=== PATIENT | male | born 1955 | race African-American/Black ===

== ENCOUNTER 2019-08-14 12:17 | Inpatient (IN) | payer MEDICAID, MEDICARE ==
[~2019-08-14] VITALS: Ht 167.6 cm; Wt 136.5 kg
[~2019-08-14 12:17] MED LIST: ALPR0.25 PO; AMLO10TA4 PO; ATOR80TA PO; CLON0.3T PO; FURO-152 PO; GABA-290 PO; HYDR-3927 PO; INSLAN SQ; METF-416 PO; METO25TA6 PO; ZOLP10TA2 PO
[2019-08-14] MEDS ORDERED: FUROSEMIDE 40MG/4ML VIAL IV ONE (13:30)
[2019-08-14] MEDS ORDERED: NITROGLYCERIN OINT 1GM/INCH UDPKT TD ONE (13:30)
[2019-08-14] MEDS ORDERED: ASPIRIN 81MG TABLET PO ONE (13:30)
[2019-08-14 14:37] LABS: BASOPHILS % 0.6 % (0.0-2.0); HEMATOCRIT. 37.2 % (42.0-52.0); LYMPHOCYTES % 26.4 % (20.0-50.0); MEAN CORPUSCULAR HEMOGLOBIN 29.6 pg (28.0-32.0); MEAN PLATELET VOLUME 9.8 fl (7.4-10.4); MONOCYTES % 11.2 % (2.0-8.0); NEUTROPHILS % 57.8 % (40.0-76.0); PLATELET 208 x1000/uL (130-400); RED BLOOD CELL COUNT 4.38 mill/uL (4.7-6.1)
[2019-08-14 14:43] LABS: CHLORIDE 109 mEq/L (98-107)
[2019-08-14 15:04] LABS: PROTHROMBIN TIME 11.3 sec (9.6-11.0)
[2019-08-14] MEDS ORDERED: INSULIN REGULAR (HUMULIN R) 300UNITS/3ML IV ONE (15:15)
[2019-08-14] MEDS ORDERED: DEXTROSE 50% WATER 50ML SYRINGE IV ONE (15:15)
[2019-08-14] MEDS ORDERED: SODIUM BICARBONATE 8.4% 1 MEQ/ML 50ML SYR IV ONE (15:15)
[2019-08-14] MEDS ORDERED: ALBUTEROL (0.083%) 2.5MG/3ML NEB HHN ONE (15:15)
[2019-08-14] MEDS ORDERED: SODIUM POLYSTYRENE SULFONATE 15 G/60 ML BOT PO ONE (15:15)
[2019-08-14] MEDS ORDERED: ONDANSETRON HCL 4MG/2ML INJ IV STA (16:21)
[2019-08-14] MEDS ORDERED: MORPHINE SULFATE 4 MG/ML CPJ (NOT FOR IM USE) IV STA (16:21)
[2019-08-14 17:43] VITALS: BP 113/71
[2019-08-14] MEDS ORDERED: ONDANSETRON HCL 4MG/2ML INJ IV PRN (18:00)
[2019-08-14] MEDS ORDERED: ACETAMINOPHEN 325MG TABLET PO PRN (18:00)
[2019-08-14] MEDS ORDERED: IPRATROPIUM/ALBUTEROL 0.5-3(2.5)MG/3ML NEB HHN PRN (18:00)
[2019-08-14 18:45] VITALS: BP 113/71
[2019-08-14 20:00] VITALS: BP 161/99
[2019-08-14] MEDS ORDERED: DEXTROSE 50% WATER 50ML SYRINGE IV PRN (21:00)
[2019-08-14] MEDS: BLOOD SUGAR DIAGNOSTIC STRIP TEST SCH (21:16)
[2019-08-14] MEDS: MORPHINE SULFATE 2 MG/ML CPJ (NOT FOR IM USE) IV PRN (21:42)
[2019-08-14] MEDS: GABAPENTIN 300MG CAPSULE PO SCH (21:43)
[2019-08-14] MEDS: INSULIN LISPRO 100 UNITS/ML SUBCUT SCH (21:43)
[2019-08-14] MEDS: ATORVASTATIN CALCIUM 40MG TABLET PO SCH (21:44)
[2019-08-14] MEDS: CLONIDINE 0.1MG TABLET PO PRN (21:44)
[2019-08-14] MEDS: ZOLPIDEM TARTRATE 5MG TABLET PO PRN (22:53)
[2019-08-14] MEDS: ALPRAZOLAM 0.25 MG TABLET PO PRN (23:43)
[2019-08-15] VITALS (7 sets, daily range): BP systolic 103–187; BP diastolic 54–81
[2019-08-15] MEDS: GABAPENTIN 300MG CAPSULE PO SCH ×3 (05:51→21:22)
[2019-08-15] MEDS: BLOOD SUGAR DIAGNOSTIC STRIP TEST SCH ×4 (05:51→20:39)
[2019-08-15] MEDS: MORPHINE SULFATE 2 MG/ML CPJ (NOT FOR IM USE) IV PRN ×3 (06:39→20:17)
[2019-08-15] MEDS: INSULIN LISPRO 100 UNITS/ML SUBCUT SCH ×4 (08:18→20:41)
[2019-08-15] MEDS: AMLODIPINE 10MG TABLET PO SCH (08:24)
[2019-08-15] MEDS: FUROSEMIDE 20MG TABLET PO SCH ×2 (08:24→16:29)
[2019-08-15] MEDS: CLONIDINE 0.3MG TABLET PO SCH (08:24)
[2019-08-15] MEDS ORDERED: METOPROLOL TARTRATE 25MG TABLET PO SCH (09:00)
[2019-08-15] MEDS: ALPRAZOLAM 0.25 MG TABLET PO PRN ×3 (09:58→22:20)
[2019-08-15] MEDS: INSULIN GLARGINE UD 100 UNITS/ML SYR SUBCUT SCH (10:00)
[2019-08-15] MEDS ORDERED: SODIUM POLYSTYRENE SULFONATE 15 G/60 ML BOT PO NR (13:00)
[2019-08-15 14:30] LABS: *BARBITURATES SCREEN URINE NEGATIVE (NEGATIVE)
[2019-08-15 14:31] LABS: *AMPHETAMINES SCREEN URINE NEGATIVE (NEGATIVE); *BENZODIAZEPINES SCREEN URINE NEGATIVE (NEGATIVE); *COCAINE SCREEN URINE PRESUMTIVE POSITIVE (NEGATIVE); CANNABINOID URINE SCREEN NEGATIVE (NEGATIVE); METHADONE URINE SCREEN NEGATIVE (NEGATIVE); OPIATES URINE SCREEN PRESUMTIVE POSITIVE (NEGATIVE); PHENCYCLIDINE URINE SCREEN NEGATIVE (NEGATIVE)
[2019-08-15] MEDS: NICOTINE 14MG PATCH TD SCH (16:29)
[2019-08-15] MEDS: ATORVASTATIN CALCIUM 40MG TABLET PO SCH (21:23)
[2019-08-15] MEDS: ZOLPIDEM TARTRATE 5MG TABLET PO PRN (22:21)
[2019-08-16] VITALS: BP 106/38
[2019-08-16] MEDS: MORPHINE SULFATE 2 MG/ML CPJ (NOT FOR IM USE) IV PRN ×4 (02:18→22:21)
[2019-08-16 04:00] VITALS: BP 108/72
[2019-08-16] MEDS: GABAPENTIN 300MG CAPSULE PO SCH ×3 (06:19→21:25)
[2019-08-16 08:00] VITALS: BP 165/95
[2019-08-16] MEDS: NICOTINE 14MG PATCH TD SCH (09:11)
[2019-08-16] MEDS: AMLODIPINE 10MG TABLET PO SCH (09:12)
[2019-08-16] MEDS: FUROSEMIDE 20MG TABLET PO SCH ×2 (09:12→16:12)
[2019-08-16] MEDS: INSULIN LISPRO 100 UNITS/ML SUBCUT SCH ×4 (09:18→21:34)
[2019-08-16] MEDS: CLONIDINE 0.1MG TABLET PO PRN ×2 (09:18→09:20)
[2019-08-16] MEDS: CLONIDINE 0.3MG TABLET PO SCH (09:26)
[2019-08-16] MEDS: INSULIN GLARGINE UD 100 UNITS/ML SYR SUBCUT SCH (10:31)
[2019-08-16 12:00] VITALS: BP 114/61
[2019-08-16] MEDS: BLOOD SUGAR DIAGNOSTIC STRIP TEST SCH ×3 (12:39→21:31)
[2019-08-16 13:43] LABS: BASOPHILS % 0.6 % (0.0-2.0); EOSINOPHILS % 4.5 % (0.0-5.0); HEMATOCRIT. 37.6 % (42.0-52.0); HEMOGLOBIN. 13.1 g/dL (14.0-18.0); LYMPHOCYTES % 27.1 % (20.0-50.0); MEAN CORPUSCULAR HEMOGLOBIN 29.4 pg (28.0-32.0); MEAN CORPUSCULAR VOLUME 84.3 fL (80.0-94.0); MEAN PLATELET VOLUME 9.5 fl (7.4-10.4); MONOCYTES % 11.5 % (2.0-8.0); NEUTROPHILS % 56.3 % (40.0-76.0); PLATELET 185 x1000/uL (130-400); RED BLOOD CELL COUNT 4.46 mill/uL (4.7-6.1); RED CELL DISTRIBUTION WIDTH 15.1 % (11.6-14.6)
[2019-08-16 13:53] LABS: CHLORIDE 105 mEq/L (98-107)
[2019-08-16 16:00] VITALS: BP 119/65
[2019-08-16] MEDS: ALPRAZOLAM 0.25 MG TABLET PO PRN ×2 (16:12→21:25)
[2019-08-16 16:51] LABS: PHOSPHORUS 3.8 mg/dL (2.5-4.9)
[2019-08-16 16:53] LABS: CREATINE KINASE 172 IU/L (39-308)
[2019-08-16 17:12] LABS: CHLORIDE 105 mEq/L (98-107)
[2019-08-16 17:29] LABS: LDL CHOLESTEROL 60 mg/dL (5-100)
[2019-08-16 17:31] LABS: HDL CHOLESTEROL 56 mg/dL (40-59)
[2019-08-16 20:00] VITALS: BP 132/62
[2019-08-16] MEDS: ATORVASTATIN CALCIUM 40MG TABLET PO SCH (21:25)
[2019-08-16] MEDS: ZOLPIDEM TARTRATE 5MG TABLET PO PRN (22:56)
[2019-08-17] VITALS (7 sets, daily range): BP systolic 118–180; BP diastolic 70–95
[2019-08-17] MEDS: BLOOD SUGAR DIAGNOSTIC STRIP TEST SCH ×4 (06:20→21:00)
[2019-08-17] MEDS: GABAPENTIN 300MG CAPSULE PO SCH ×3 (06:20→21:41)
[2019-08-17] MEDS: NICOTINE 14MG PATCH TD SCH (09:29)
[2019-08-17] MEDS: INSULIN LISPRO 100 UNITS/ML SUBCUT SCH ×4 (09:30→22:54)
[2019-08-17] MEDS: FUROSEMIDE 20MG TABLET PO SCH ×2 (09:30→17:00)
[2019-08-17] MEDS: AMLODIPINE 10MG TABLET PO SCH (09:30)
[2019-08-17] MEDS: MORPHINE SULFATE 2 MG/ML CPJ (NOT FOR IM USE) IV PRN ×2 (09:38→18:11)
[2019-08-17] MEDS: INSULIN GLARGINE UD 100 UNITS/ML SYR SUBCUT SCH (10:00)
[2019-08-17] MEDS: CLONIDINE 0.1MG TABLET PO PRN (19:42)
[2019-08-17] MEDS: ALPRAZOLAM 0.25 MG TABLET PO PRN (21:40)
[2019-08-17] MEDS: ATORVASTATIN CALCIUM 40MG TABLET PO SCH (21:41)
[2019-08-17] MEDS: ZOLPIDEM TARTRATE 5MG TABLET PO PRN (23:10)
[2019-08-18] VITALS: BP 143/67
[2019-08-18 04:00] VITALS: BP 168/90
[2019-08-18] MEDS: MORPHINE SULFATE 2 MG/ML CPJ (NOT FOR IM USE) IV PRN ×3 (04:08→22:03)
[2019-08-18] MEDS: HYDROCODONE/ACETAMINOPHEN 5/325MG TABLET PO PRN (06:44)
[2019-08-18] MEDS: BLOOD SUGAR DIAGNOSTIC STRIP TEST SCH ×4 (06:45→21:01)
[2019-08-18] MEDS: GABAPENTIN 300MG CAPSULE PO SCH ×3 (06:45→20:57)
[2019-08-18] MEDS: INSULIN LISPRO 100 UNITS/ML SUBCUT SCH ×4 (08:24→21:15)
[2019-08-18] MEDS: NICOTINE 14MG PATCH TD SCH (09:53)
[2019-08-18] MEDS: FUROSEMIDE 20MG TABLET PO SCH (09:53)
[2019-08-18] MEDS: ALPRAZOLAM 0.25 MG TABLET PO PRN ×2 (09:53→21:08)
[2019-08-18] MEDS: AMLODIPINE 10MG TABLET PO SCH (09:54)
[2019-08-18] MEDS: INSULIN GLARGINE UD 100 UNITS/ML SYR SUBCUT SCH (10:44)
[2019-08-18] MEDS: CLONIDINE 0.1MG TABLET PO SCH ×2 (11:54→20:58)
[2019-08-18 12:00] VITALS: BP 177/98
[2019-08-18 16:00] VITALS: BP 141/69
[2019-08-18 20:00] VITALS: BP 154/76
[2019-08-18] MEDS: ATORVASTATIN CALCIUM 40MG TABLET PO SCH (20:58)
[2019-08-18] MEDS: ZOLPIDEM TARTRATE 5MG TABLET PO PRN (23:14)
[2019-08-19] VITALS: BP 139/70
[2019-08-19] MEDS: HYDROCODONE/ACETAMINOPHEN 5/325MG TABLET PO PRN ×2 (02:46→06:50)
[2019-08-19 04:00] VITALS: BP 145/83
[2019-08-19] MEDS: MORPHINE SULFATE 2 MG/ML CPJ (NOT FOR IM USE) IV PRN (04:53)
[2019-08-19] MEDS: GABAPENTIN 300MG CAPSULE PO SCH (06:23)
[2019-08-19] MEDS: BLOOD SUGAR DIAGNOSTIC STRIP TEST SCH (06:25)
[2019-08-19 08:00] VITALS: BP 146/75
[2019-08-19 08:03] LABS: CHLORIDE 107 mEq/L (98-107)
[2019-08-19] MEDS: CLONIDINE 0.1MG TABLET PO SCH (08:33)
[2019-08-19] MEDS: INSULIN LISPRO 100 UNITS/ML SUBCUT SCH (08:36)
[2019-08-19] MEDS: AMLODIPINE 10MG TABLET PO SCH (08:42)
[2019-08-19] MEDS: NICOTINE 14MG PATCH TD SCH (08:43)
[2019-08-19] MEDS: INSULIN GLARGINE UD 100 UNITS/ML SYR SUBCUT SCH (10:53)
== END 2019-08-19 11:37 | disposition home or self-care (01) | DRG 203 ==
LOC: ER 12:31 → 6WST 15:36 → ENRESERV 16:32 → 6WST 20:11 → 6EST 08-18 11:36
PROVIDERS: ADMIT Internal Medicine; ATTEND Internal Medicine
DX: M94.0 Chondrocostal junction syndrome [Tietze] (principal); N17.9 Acute kidney failure, unspecified; E44.0 Moderate protein-calorie malnutrition; E11.22 Type 2 diabetes mellitus with diabetic chronic kidney disease; I13.0 Hypertensive heart and chronic kidney disease with heart failure and stage 1 through stage 4 chronic kidney disease, or unspecified chronic kidney disease; I50.32 Chronic diastolic (congestive) heart failure; I25.10 Atherosclerotic heart disease of native coronary artery without angina pectoris; E66.01 Morbid (severe) obesity due to excess calories; E87.5 Hyperkalemia; F14.10 Cocaine abuse, uncomplicated; F17.200 Nicotine dependence, unspecified, uncomplicated; N18.9 Chronic kidney disease, unspecified; J44.9 Chronic obstructive pulmonary disease, unspecified; E78.5 Hyperlipidemia, unspecified; F12.10 Cannabis abuse, uncomplicated; F10.10 Alcohol abuse, uncomplicated; Y90.9 Presence of alcohol in blood, level not specified; D64.9 Anemia, unspecified; I69.354 Hemiplegia and hemiparesis following cerebral infarction affecting left non-dominant side; Z91.19 Patient's noncompliance with other medical treatment and regimen; Z68.42 Body mass index [BMI] 45.0-49.9, adult; Z88.8 Allergy status to other drugs, medicaments and biological substances; Z79.84 Long term (current) use of oral hypoglycemic drugs; Z79.891 Long term (current) use of opiate analgesic; Z79.4 Long term (current) use of insulin; Z82.49 Family history of ischemic heart disease and other diseases of the circulatory system; Z59.0 Homelessness; Z83.3 Family history of diabetes mellitus
CPT/HCPCS: 36415; 71045; 80048; 80053; 80061; 80305; 82550; 82962; 83036; 83735; 83880; 84100; 84443; 84484; 85025; 85379; 93005; 93306; 93970; 99285; J1815; J1940; J2270; J2405; J3490

== ENCOUNTER 2020-07-21 22:29 | Inpatient (IN) | payer MEDICAID ==
[~2020-07-21] VITALS: Ht 177.8 cm; Wt 138.9 kg
[~2020-07-21 22:29] MED LIST changes: -CLON0.3T PO; -METO25TA6 PO
[2020-07-22] MEDS ORDERED: FAMOTIDINE 20MG/2ML VIAL IV STA (00:20)
[2020-07-22] MEDS ORDERED: METOCLOPRAMIDE HCL 10MG/2ML VIAL IV STA (00:20)
[2020-07-22 00:58] LABS: *AMPHETAMINES SCREEN URINE NEGATIVE (NEGATIVE); *BARBITURATES SCREEN URINE NEGATIVE (NEGATIVE); *BENZODIAZEPINES SCREEN URINE NEGATIVE (NEGATIVE); *COCAINE SCREEN URINE NEGATIVE (NEGATIVE); CANNABINOID URINE SCREEN NEGATIVE (NEGATIVE); METHADONE URINE SCREEN NEGATIVE (NEGATIVE); OPIATES URINE SCREEN PRESUMTIVE POSITIVE (NEGATIVE); PHENCYCLIDINE URINE SCREEN NEGATIVE (NEGATIVE)
[2020-07-22 02:18] LABS: BASOPHILS % 0.8 % (0.0-2.0); EOSINOPHILS % 4.6 % (0.0-5.0); HEMATOCRIT. 42.6 % (42.0-52.0); HEMOGLOBIN. 14.4 g/dL (14.0-18.0); LYMPHOCYTES % 18.1 % (20.0-50.0); MEAN CORPUSCULAR HEMOGLOBIN 28.5 pg (28.0-32.0); MEAN PLATELET VOLUME 9.4 fl (7.4-10.4); NEUTROPHILS % 67.5 % (40.0-76.0); PLATELET 222 x1000/uL (130-400); RED BLOOD CELL COUNT 5.07 mill/uL (4.7-6.1); RED CELL DISTRIBUTION WIDTH 15.9 % (11.6-14.6)
[2020-07-22 02:21] LABS: CHLORIDE 105 mEq/L (98-107)
[2020-07-22] MEDS ORDERED: MORPHINE SULFATE 2 MG/ML CPJ (NOT FOR IM USE) IV PRN (05:00)
[2020-07-22 09:30] VITALS: BP 139/78
[2020-07-22] MEDS ORDERED: ONDANSETRON HCL 4MG/2ML INJ IV PRN ×2 (09:30)
[2020-07-22] MEDS ORDERED: ACETAMINOPHEN 325MG TABLET PO PRN (09:30)
[2020-07-22 10:30] VITALS: BP 139/78
[2020-07-22] MEDS ORDERED: LOSARTAN POTASSIUM 50 MG TABLET PO SCH (11:00)
[2020-07-22 12:00] VITALS: BP 160/98
[2020-07-22] MEDS: TRAMADOL 50MG TABLET PO PRN ×2 (13:00→22:36)
[2020-07-22] MEDS: ENOXAPARIN 40MG/0.4ML SYR SUBCUT SCH ×2 (13:01→22:20)
[2020-07-22] MEDS ORDERED: NA PHOS,M-B/NA PHOS,DI-BA ENEMA 118ML PR ONE (14:00)
[2020-07-22] MEDS ORDERED: IPRATROPIUM/ALBUTEROL 0.5-3(2.5)MG/3ML NEB HHN PRN (14:15)
[2020-07-22] MEDS: NICOTINE 14MG PATCH TD SCH (15:54)
[2020-07-22] MEDS: DOCUSATE SODIUM SUGAR FREE 100MG/10ML UDC PO SCH (15:54)
[2020-07-22] MEDS ORDERED: CLONIDINE 0.1MG TABLET PO PRN (16:15)
[2020-07-22 20:00] VITALS: BP 178/90
[2020-07-22] MEDS: AMLODIPINE 10MG TABLET PO SCH (21:08)
[2020-07-22] MEDS ORDERED: IOHEXOL-350 100 ML BOTTLE ONE (22:07)
[2020-07-22] MEDS: FAMOTIDINE 20MG TABLET PO SCH (22:20)
[2020-07-22] MEDS: CLONIDINE 0.1MG TABLET PO SCH (22:21)
[2020-07-22] MEDS: METOPROLOL TARTRATE 25MG TABLET PO SCH (22:21)
[2020-07-22] MEDS: ALPRAZOLAM 0.5 MG TABLET PO PRN (23:34)
[2020-07-23] VITALS: BP 142/85
[2020-07-23 04:00] VITALS: BP 146/76
[2020-07-23] MEDS: ALPRAZOLAM 0.5 MG TABLET PO PRN ×3 (05:04→23:10)
[2020-07-23] MEDS: CLONIDINE 0.1MG TABLET PO SCH ×3 (05:37→21:05)
[2020-07-23 06:32] LABS: BASOPHILS % 0.7 % (0.0-2.0); EOSINOPHILS % 2.5 % (0.0-5.0); HEMOGLOBIN. 13.6 g/dL (14.0-18.0); MEAN CORPUSCULAR HEMOGLOBIN 28.3 pg (28.0-32.0); MEAN CORPUSCULAR VOLUME 83.4 fL (80.0-94.0); MEAN PLATELET VOLUME 9.9 fl (7.4-10.4); MONOCYTES % 8.9 % (2.0-8.0); NEUTROPHILS % 73.9 % (40.0-76.0); PLATELET 216 x1000/uL (130-400)
[2020-07-23 07:02] LABS: CHLORIDE 104 mEq/L (98-107)
[2020-07-23 08:00] VITALS: BP 149/81
[2020-07-23] MEDS ORDERED: PNEUMOCOCCAL 23-VAL P-SAC VAC 0.5 ML IM ONE (08:00)
[2020-07-23] MEDS: DOCUSATE SODIUM SUGAR FREE 100MG/10ML UDC PO SCH (09:29)
[2020-07-23] MEDS: AMLODIPINE 10MG TABLET PO SCH (09:30)
[2020-07-23] MEDS: ASPIRIN 81MG TABLET PO SCH (09:30)
[2020-07-23] MEDS: METOPROLOL TARTRATE 25MG TABLET PO SCH (09:30)
[2020-07-23] MEDS: LOSARTAN POTASSIUM 100 MG TABLET PO SCH (09:31)
[2020-07-23] MEDS: NICOTINE 14MG PATCH TD SCH (09:31)
[2020-07-23] MEDS ORDERED: INFLUENZA VACCINE 05/PF 0.5 ML VIAL IM ONE (10:00)
[2020-07-23] MEDS ORDERED: METOPROLOL TARTRATE 25MG TABLET PO SCH (11:45)
[2020-07-23 12:00] VITALS: BP 155/94
[2020-07-23] MEDS: METFORMIN HCL 500MG TABLET PO SCH ×2 (13:29→18:00)
[2020-07-23] MEDS: ENOXAPARIN 40MG/0.4ML SYR SUBCUT SCH ×2 (13:29→22:53)
[2020-07-23] MEDS: HYDROCODONE/ACETAMINOPHEN 5/325MG TABLET PO PRN (14:58)
[2020-07-23 16:00] VITALS: BP 153/92
[2020-07-23 20:00] VITALS: BP 116/65
[2020-07-23] MEDS: FAMOTIDINE 20MG TABLET PO SCH (21:06)
[2020-07-23] MEDS: METOPROLOL TARTRATE 50MG TABLET PO SCH (21:06)
[2020-07-24] VITALS: BP 133/71
[2020-07-24] MEDS: HYDROCODONE/ACETAMINOPHEN 5/325MG TABLET PO PRN ×2 (01:47→14:17)
[2020-07-24 04:00] VITALS: BP_SYST 134; BP_SYST 146; BP_DIAS 69; BP_DIAS 81
[2020-07-24] MEDS: CLONIDINE 0.1MG TABLET PO SCH ×2 (06:10→14:16)
[2020-07-24] MEDS: ASPIRIN 81MG TABLET PO SCH (08:40)
[2020-07-24] MEDS: NICOTINE 14MG PATCH TD SCH (08:40)
[2020-07-24] MEDS: METFORMIN HCL 500MG TABLET PO SCH (08:41)
[2020-07-24] MEDS: DOCUSATE SODIUM SUGAR FREE 100MG/10ML UDC PO SCH (08:41)
[2020-07-24] MEDS: METOPROLOL TARTRATE 50MG TABLET PO SCH (08:43)
[2020-07-24] MEDS: AMLODIPINE 10MG TABLET PO SCH (08:44)
[2020-07-24] MEDS: LOSARTAN POTASSIUM 100 MG TABLET PO SCH (08:44)
[2020-07-24] MEDS: ENOXAPARIN 40MG/0.4ML SYR SUBCUT SCH (11:05)
[2020-07-24] MEDS: ALPRAZOLAM 0.5 MG TABLET PO PRN (11:11)
[2020-07-24] MEDS ORDERED: LOSA100T3 PO (13:21)
[2020-07-24] MEDS ORDERED: CLON0.2T MT (13:21)
[2020-07-24] MEDS ORDERED: NICO-681 TD (13:21)
[2020-07-24] MEDS ORDERED: METF500T PO (13:21)
[2020-07-24 13:37] VITALS: BP 122/77
[2020-07-24 14:17] VITALS: BP 122/74
[2020-07-24] MEDS ORDERED: ENOXAPARIN 40MG/0.4ML SYR SUBCUT SCH (22:00)
== END 2020-07-24 15:52 | disposition home or self-care (01) | DRG 203 ==
LOC: ER 22:29 → 8WST 07-22 03:39 → ENRESERV 07-22 07:58
PROVIDERS: ADMIT Internal Medicine; ATTEND Internal Medicine
DX: M94.0 Chondrocostal junction syndrome [Tietze] (principal); I16.0 Hypertensive urgency; D72.829 Elevated white blood cell count, unspecified; E11.9 Type 2 diabetes mellitus without complications; E44.1 Mild protein-calorie malnutrition; E66.01 Morbid (severe) obesity due to excess calories; E78.5 Hyperlipidemia, unspecified; F17.210 Nicotine dependence, cigarettes, uncomplicated; F41.9 Anxiety disorder, unspecified; I11.0 Hypertensive heart disease with heart failure; I25.10 Atherosclerotic heart disease of native coronary artery without angina pectoris; I50.32 Chronic diastolic (congestive) heart failure; J44.9 Chronic obstructive pulmonary disease, unspecified; K59.00 Constipation, unspecified; Z86.73 Personal history of transient ischemic attack (TIA), and cerebral infarction without residual deficits; Z68.41 Body mass index [BMI] 40.0-44.9, adult; Z88.6 Allergy status to analgesic agent; Z79.899 Other long term (current) drug therapy; Z82.49 Family history of ischemic heart disease and other diseases of the circulatory system; Z71.3 Dietary counseling and surveillance; Z71.6 Tobacco abuse counseling; R65.10 Systemic inflammatory response syndrome (SIRS) of non-infectious origin without acute organ dysfunction
CPT/HCPCS: 36415; 71045; 71275; 78580; 80048; 80053; 80305; 83880; 84484; 85025; 85379; 90686; 90732; 93005; 93306; 93970; 99285; J1650; J2270; J2765; J3490; Q9967